=== PATIENT | male | born 1955 | race Caucasian/White ===

== ENCOUNTER 2020-02-15 17:03 | Inpatient (IN) | payer BC ==
[~2020-02-15] VITALS: Ht 190.5 cm; Wt 91.5 kg
--- NOTE | 2020-02-15 18:06 | NUR ---
PT STATES LOW BACK SURGERY X1 WEEK AGO. PT STATES RLE PAIN AND WEAKNESS STARTING THIS AM, PT STATES DIFFICULTY WALKING WELL. ERMD AT BEDSIDE FOR ASSESSMENT. PT PLACED ON MONITORS, VSS. WILL FOLLOW ORDERS.
[2020-02-15] MEDS ORDERED: ONDANSETRON 2MG/ML, 2ML ONE (18:27)
[2020-02-15] MEDS ORDERED: HYDROmorphone 1 MG/ML, 1ML INJ ONE ×2 (18:27→20:48)
[2020-02-15] MEDS ORDERED: SODIUM CHLORIDE FLUSH 10ML SYR IVF PRN (18:30)
[2020-02-15] MEDS ORDERED: ONDANSETRON 2MG/ML, 2ML IVPush ONE (18:30)
[2020-02-15] MEDS: HYDROmorphone 1 MG/ML, 1ML INJ IVPush PRN ×2 (18:31→20:48)
--- NOTE | 2020-02-15 18:34 | NUR ---
PT MEDICATED FOR PAIN PER ORDERS. WILL REASSESS.
--- NOTE | 2020-02-15 18:56 | NUR ---
MRI FORM COLPLETED, FAXED TO MRI. PT STATES PAIN SLIGHTLY DECREASED, PAIN MEDICATIONS EFFECTIVE.
[2020-02-15] MEDS ORDERED: SODIUM CHLORIDE FLUSH 10ML SYR IVF ONE (19:00)
--- NOTE | 2020-02-15 19:22 | NUR ---
REPORT GIVEN TO RAUL STEINER. PT TO MRI, OK TO TRANSFER TO FLOOR WHEN MRI COMPLETE.
--- NOTE | 2020-02-15 20:18 | NUR ---
PT BACK FROM MRI. ADMTTING AT BEDSIDE. THEN PT OK TO TRANSFER TO FLOOR.
--- NOTE | 2020-02-15 20:53 | NUR ---
PT MEDICATED FOR PAIN PER ORDERS. PT TRANSFERED TO FLOOR. PT HAS ALL OWN BELONGINGS UPON TRANSFER.
[2020-02-15] MEDS ORDERED: ONDANSETRON 2MG/ML, 2ML IVPush PRN (21:00)
[2020-02-15] MEDS ORDERED: ACETAMINOPHEN 325 MG TABLET PO PRN (21:00)
[2020-02-15] MEDS ORDERED: hydrALAzine 20 MG/ML, 1ML IVPush PRN (21:00)
[2020-02-15] MEDS ORDERED: TRAZODONE 50MG TABLET PO PRN (21:00)
[2020-02-15 21:13] VITALS: BP 143/91
[2020-02-15] MEDS: LACTATED RINGERS 1,000 ML IV SCH (21:20)
[2020-02-15] MEDS: KETOROLAC 30 MG/1 ML IV PRN (21:32)
[2020-02-16] MEDS: HYDROmorphone 2 MG/ML, 1ML IVPush PRN ×4 (00:08→14:53)
[2020-02-16 01:41] VITALS: BP 134/81
[2020-02-16] MEDS: KETOROLAC 30 MG/1 ML IV PRN ×2 (04:41→10:54)
[2020-02-16] MEDS: LACTATED RINGERS 1,000 ML IV SCH ×2 (04:50→13:45)
[2020-02-16 06:00] LABS: BASOPHILS # (AUTO) 0.03 x10^3/uL (0-0.1); BASOPHILS % (AUTO) 1 % (0-1); EOSINOPHILS # (AUTO) 0.12 x10^3/uL (0-0.4); EOSINOPHILS % (AUTO) 2 % (1-7); LYMPHOCYTES # (AUTO) 1.68 x10^3/uL (1-3.4); LYMPHOCYTES % (AUTO) 27 % (22-44); MD NO; MEAN CORPUSCULAR HEMOGLOBIN 30.4 pg (27.5-34.5); MEAN CORPUSCULAR HGB CONC 33.3 g/dL (33.2-36.2); MEAN CORPUSCULAR VOLUME 91.1 fL (81-97); MEAN PLATELET VOLUME 8.7 fL (7.4-10.4); MONOCYTES % (AUTO) 10 % (2-9); NEUTROPHILS # (AUTO) 3.79 x10^3/uL (1.8-6.8); NEUTROPHILS % (AUTO) 61 % (42-75); PLATELET COUNT 198 x10^3/uL (130-400); RED BLOOD COUNT 5.22 x10^6/uL (4.38-5.82); RED CELL DISTRIBUTION WIDTH 13.6 % (9.4-14.8)
[2020-02-16 06:05] LABS: ANION GAP 6 mmol/L (5-15); CHLORIDE 109 mmol/L (98-107); CREATININE 0.85 mg/dL (0.7-1.3)
[2020-02-16 07:55] VITALS: BP 142/83
[2020-02-16 09:19] LABS: HCT (SEDRATE) 47.5 % (39.2-51.8)
[2020-02-16] MEDS ORDERED: OXYcodone IR 5MG TABLET PO PRN (10:00)
[2020-02-16] MEDS: SENNA/DOCUSATE TABLET PO SCH (10:17)
[2020-02-16] MEDS: DEXAMETHASONE 4 MG/ML, 1ML IV SCH ×3 (10:17→22:21)
[2020-02-16] MEDS: CYCLOBENZAPRINE 10 MG TABLET PO PRN (10:18)
[2020-02-16] MEDS: OXYcodone IR 5MG TABLET PO PRN ×2 (10:54→16:20)
[2020-02-16 10:57] VITALS: BP 135/84
[2020-02-16 13:41] VITALS: BP 148/91
[2020-02-16] MEDS: GABAPENTIN 300 MG CAPSULE PO SCH ×2 (16:19→22:21)
[2020-02-16 18:48] VITALS: BP 146/79
[2020-02-17 01:41] VITALS: BP 118/73
[2020-02-17 06:56] LABS: BASOPHILS # (AUTO) 0.04 x10^3/uL (0-0.1); BASOPHILS % (AUTO) 0 % (0-1); EOSINOPHILS % (AUTO) 0 % (1-7); LYMPHOCYTES # (AUTO) 0.65 x10^3/uL (1-3.4); LYMPHOCYTES % (AUTO) 7 % (22-44); MD NO; MEAN CORPUSCULAR HEMOGLOBIN 30.2 pg (27.5-34.5); MEAN CORPUSCULAR HGB CONC 33.6 g/dL (33.2-36.2); MEAN CORPUSCULAR VOLUME 89.8 fL (81-97); MEAN PLATELET VOLUME 8.7 fL (7.4-10.4); MONOCYTES # (AUTO) 0.55 x10^3/uL (0.2-0.8); MONOCYTES % (AUTO) 6 % (2-9); NEUTROPHILS # (AUTO) 7.82 x10^3/uL (1.8-6.8); NEUTROPHILS % (AUTO) 86 % (42-75); PLATELET COUNT 227 x10^3/uL (130-400); RED BLOOD COUNT 5.12 x10^6/uL (4.38-5.82); RED CELL DISTRIBUTION WIDTH 13.7 % (9.4-14.8)
[2020-02-17 06:57] LABS: ANION GAP 5 mmol/L (5-15); CALCIUM 8.9 mg/dL (8.5-10.1); CHLORIDE 111 mmol/L (98-107); CREATININE 0.83 mg/dL (0.7-1.3)
[2020-02-17] MEDS: SENNA/DOCUSATE TABLET PO SCH (08:20)
[2020-02-17] MEDS: GABAPENTIN 300 MG CAPSULE PO SCH ×3 (08:20→21:21)
[2020-02-17] MEDS: OXYcodone IR 5MG TABLET PO PRN ×4 (08:31→22:39)
[2020-02-17 08:37] VITALS: BP 125/73
[2020-02-17 15:59] VITALS: BP 126/78
[2020-02-17 21:05] VITALS: BP 139/84
[2020-02-17] MEDS ORDERED: DIPHENHYDRAMINE 25 MG CAPSULE PO PRN (23:00)
[2020-02-18] MEDS: KETOROLAC 30 MG/1 ML IV PRN ×4 (01:10→22:18)
[2020-02-18 06:11] LABS: CHLORIDE 111 mmol/L (98-107)
[2020-02-18 06:20] LABS: BASOPHILS # (AUTO) 0.06 x10^3/uL (0-0.1); BASOPHILS % (AUTO) 1 % (0-1); EOSINOPHILS # (AUTO) 0.13 x10^3/uL (0-0.4); EOSINOPHILS % (AUTO) 2 % (1-7); LYMPHOCYTES # (AUTO) 2.16 x10^3/uL (1-3.4); LYMPHOCYTES % (AUTO) 30 % (22-44); MD NO; MEAN CORPUSCULAR VOLUME 90.8 fL (81-97); MEAN PLATELET VOLUME 8.6 fL (7.4-10.4); MONOCYTES # (AUTO) 0.52 x10^3/uL (0.2-0.8); MONOCYTES % (AUTO) 7 % (2-9); NEUTROPHILS # (AUTO) 4.26 x10^3/uL (1.8-6.8); NEUTROPHILS % (AUTO) 60 % (42-75); PLATELET COUNT 211 x10^3/uL (130-400); RED BLOOD COUNT 4.85 x10^6/uL (4.38-5.82); RED CELL DISTRIBUTION WIDTH 13.5 % (9.4-14.8)
[2020-02-18 06:21] LABS: ALANINE AMINOTRANSFERASE 36 U/L (12-78); ALKALINE PHOSPHATASE 57 U/L (45-117); ANION GAP 5 mmol/L (5-15); BILIRUBIN,TOTAL 0.9 mg/dL (0.2-1.0); CALCIUM 8.4 mg/dL (8.5-10.1); TOTAL PROTEIN 5.6 g/dL (6.4-8.2)
[2020-02-18 07:02] VITALS: BP 131/83
[2020-02-18] MEDS: OXYcodone IR 5MG TABLET PO PRN ×2 (08:25→13:14)
[2020-02-18] MEDS: SENNA/DOCUSATE TABLET PO SCH (08:25)
[2020-02-18] MEDS: GABAPENTIN 300 MG CAPSULE PO SCH ×3 (08:26→21:02)
[2020-02-18] MEDS: CYCLOBENZAPRINE 10 MG TABLET PO PRN ×2 (10:12→21:02)
[2020-02-18 14:50] VITALS: BP 143/83
[2020-02-18] MEDS ORDERED: DEXAMETHASONE 4 MG/ML, 1ML IVPush SCH (15:30)
[2020-02-18] MEDS: DEXAMETHASONE 10 MG in SODIUM CHLORIDE 0.9% 50 ML IV SCH ×2 (17:22→23:27)
[2020-02-18] MEDS ORDERED: POLYETHYLENE GLYCOL 17 GM PACKET PO PRN (17:30)
[2020-02-18] MEDS: HYDROmorphone 2 MG/ML, 1ML IVPush PRN (17:32)
[2020-02-18 19:56] VITALS: BP 132/81
[2020-02-19 00:14] VITALS: BP 114/70
[2020-02-19] MEDS: KETOROLAC 30 MG/1 ML IV PRN (04:48)
[2020-02-19] MEDS: DEXAMETHASONE 10 MG in SODIUM CHLORIDE 0.9% 50 ML IV SCH ×2 (05:13→21:55)
[2020-02-19 05:39] LABS: BASOPHILS % (AUTO) 0 % (0-1); EOSINOPHILS # (AUTO) 0.01 x10^3/uL (0-0.4); EOSINOPHILS % (AUTO) 0 % (1-7); LYMPHOCYTES # (AUTO) 0.48 x10^3/uL (1-3.4); LYMPHOCYTES % (AUTO) 8 % (22-44); MD NO; MEAN CORPUSCULAR HEMOGLOBIN 30.2 pg (27.5-34.5); MEAN CORPUSCULAR HGB CONC 33.5 g/dL (33.2-36.2); MEAN CORPUSCULAR VOLUME 90.2 fL (81-97); MEAN PLATELET VOLUME 8.9 fL (7.4-10.4); MONOCYTES # (AUTO) 0.06 x10^3/uL (0.2-0.8); MONOCYTES % (AUTO) 1 % (2-9); NEUTROPHILS % (AUTO) 91 % (42-75); PLATELET COUNT 245 x10^3/uL (130-400); RED BLOOD COUNT 5.16 x10^6/uL (4.38-5.82); RED CELL DISTRIBUTION WIDTH 13.8 % (9.4-14.8)
[2020-02-19 05:55] LABS: CHLORIDE 108 mmol/L (98-107)
[2020-02-19 06:05] LABS: ANION GAP 9 mmol/L (5-15); CALCIUM 8.8 mg/dL (8.5-10.1)
[2020-02-19 07:09] VITALS: BP 133/84
[2020-02-19] MEDS: SENNA/DOCUSATE TABLET PO SCH (09:11)
[2020-02-19] MEDS: GABAPENTIN 300 MG CAPSULE PO SCH ×3 (09:11→21:54)
[2020-02-19] MEDS: FAMOTIDINE 20 MG TABLET PO SCH ×2 (09:11→21:53)
[2020-02-19] MEDS: DEXAMETHASONE 4 MG/ML, 1ML IVPush SCH ×2 (11:23→16:30)
[2020-02-19] MEDS: HYDROmorphone 2 MG/ML, 1ML IVPush PRN ×2 (12:15→18:31)
[2020-02-19 13:21] VITALS: BP 120/78
[2020-02-19] MEDS ORDERED: DEXAMETHASONE 4 MG/ML, 1ML IV SCH (18:00)
[2020-02-19 18:26] VITALS: BP 137/75
[2020-02-19] MEDS: AMITRIPTYLINE 25 MG TABLET PO SCH (21:54)
[2020-02-20 01:23] VITALS: BP 135/81
[2020-02-20] MEDS: HYDROmorphone 2 MG/ML, 1ML IVPush PRN ×2 (02:06→10:29)
[2020-02-20] MEDS: DEXAMETHASONE 10 MG in SODIUM CHLORIDE 0.9% 50 ML IV SCH ×2 (03:09→08:40)
[2020-02-20] MEDS: OXYcodone IR 5MG TABLET PO PRN (05:23)
[2020-02-20] MEDS: GABAPENTIN 300 MG CAPSULE PO SCH ×3 (07:11→20:50)
[2020-02-20] MEDS: SENNA/DOCUSATE TABLET PO SCH (07:11)
[2020-02-20] MEDS: FAMOTIDINE 20 MG TABLET PO SCH ×2 (07:11→20:50)
[2020-02-20 07:35] VITALS: BP 134/82
[2020-02-20 08:46] LABS: INTERNATIONAL NORMALIZED RATIO 0.95 (0.93-1.1); PROTHROMBIN TIME 9.8 Seconds (9.6-11.5)
[2020-02-20] MEDS ORDERED: CHLORHEXIDINE 15 ML UDC ONE (10:54)
[2020-02-20] MEDS ORDERED: BUPIVACAINE/EPI 0.5% 1:200K ONE (10:56)
[2020-02-20] MEDS ORDERED: BACITRACIN OINT 500U/GM, 15 GM ONE (10:56)
[2020-02-20] MEDS ORDERED: BACITRACIN 50,000 UNIT ONE (10:56)
[2020-02-20] MEDS ORDERED: CHLORHEXIDINE 15 ML UDC MM ONE (11:00)
[2020-02-20] MEDS ORDERED: MIDAZOLAM 1 MG/ML, 2ML ONE (11:22)
[2020-02-20] MEDS ORDERED: FENTANYL PF 250 MCG/5ML ONE (11:22)
[2020-02-20] MEDS ORDERED: ACETAMINOPHEN 325 MG TABLET PO PRN ×2 (11:30→13:00)
[2020-02-20] MEDS ORDERED: OXYcodone 5 MG/5 ML ORAL.SOL UDC PO PRN (11:30)
[2020-02-20] MEDS ORDERED: MEPERIDINE/PF 25MG/0.5ML IVPush PRN (11:30)
[2020-02-20] MEDS ORDERED: ONDANSETRON 2MG/ML, 2ML IVPush PRN ×2 (11:30→13:00)
[2020-02-20] MEDS ORDERED: VANCOMYCIN 500 MG ONE (12:05)
[2020-02-20] MEDS: FENTANYL PF 100 MCG/2ML IV PRN ×3 (12:46→13:20)
[2020-02-20] MEDS ORDERED: KETOROLAC 30 MG/1 ML ONE (12:53)
[2020-02-20] MEDS ORDERED: FENTANYL PF 100 MCG/2ML ONE (12:53)
[2020-02-20] MEDS ORDERED: OXYcodone 5 MG/5 ML ORAL.SOL UDC ONE (12:54)
[2020-02-20] MEDS ORDERED: NS + 20MEQ KCL 1,000 ML IV SCH (13:00)
[2020-02-20] MEDS ORDERED: SENNA/DOCUSATE TABLET PO PRN (13:00)
[2020-02-20] MEDS ORDERED: METHOCARBAMOL 1,000 MG in DEXTROSE 5% 100 ML IV ONE (13:00)
[2020-02-20] MEDS ORDERED: HYDROmorphone 1 MG/ML, 1ML INJ IVPush PRN (13:00)
[2020-02-20] MEDS ORDERED: PROMETHAZINE 25 MG/ML, 1ML IM PRN (13:00)
[2020-02-20] MEDS ORDERED: BISACODYL 10 MG SUPP PR PRN (13:00)
[2020-02-20] MEDS ORDERED: DIPHENHYDRAMINE 50 MG/ML, 1ML IVPush PRN (13:00)
[2020-02-20] MEDS ORDERED: MAGNESIUM HYDROXIDE 8%, 30ML UDC PO PRN (13:00)
[2020-02-20] MEDS ORDERED: HYDROcodone/APAP 10/325 MG TABLET PO PRN (13:00)
[2020-02-20] MEDS: KETOROLAC 30 MG/1 ML IV PRN ×2 (13:00→20:51)
[2020-02-20] MEDS ORDERED: PHARMACY MAY ADJ FOR RENAL FX MC PRN (13:00)
[2020-02-20 14:06] VITALS: BP 149/79
[2020-02-20 15:34] VITALS: BP 129/78
[2020-02-20] MEDS: CEFAZOLIN PMX 1GM/50ML 50 ML IVPB SCH ×2 (16:23→23:56)
[2020-02-20] MEDS: HYDROcodone/APAP 5/325 TABLET PO PRN ×2 (16:55→20:50)
[2020-02-20 20:06] VITALS: BP 140/85
[2020-02-20] MEDS: AMITRIPTYLINE 25 MG TABLET PO SCH (20:50)
[2020-02-20] MEDS ORDERED: METHOCARBAMOL 750 MG TABLET PO PRN (21:00)
[2020-02-20] MEDS ORDERED: SODIUM CHLORIDE FLUSH 10ML SYR IVF SCH (21:00)
[2020-02-21 02:54] VITALS: BP 124/70
[2020-02-21] MEDS: HYDROcodone/APAP 5/325 TABLET PO PRN ×2 (05:00→16:54)
[2020-02-21 07:09] VITALS: BP 138/79
[2020-02-21] MEDS: SENNA/DOCUSATE TABLET PO SCH (08:32)
[2020-02-21] MEDS: FAMOTIDINE 20 MG TABLET PO SCH (08:32)
[2020-02-21] MEDS: GABAPENTIN 300 MG CAPSULE PO SCH ×2 (08:32→16:54)
[2020-02-21] MEDS: OXYcodone IR 5MG TABLET PO PRN (10:16)
[2020-02-21] MEDS: CYCLOBENZAPRINE 10 MG TABLET PO PRN (12:52)
[2020-02-21 13:12] VITALS: BP 142/86
[2020-02-21] MEDS ORDERED: GABA300C PO (16:10)
[2020-02-21] MEDS ORDERED: CYCL-259 PO (16:10)
[2020-02-21] MEDS ORDERED: AMIT25TA PO (16:10)
== END 2020-02-21 17:34 | disposition home or self-care (01) | DRG 520 ==
LOC: ED 18:13 → EDIP 18:54 → 3N 20:59
PROVIDERS: ADMIT Family Medicine; ATTEND Hospitalist
PROC: 01NB0ZZ Release Lumbar Nerve, Open Approach (ICD-10-PCS; 2020-02-20)
PROC: 0SB40ZZ Excision of Lumbosacral Disc, Open Approach (ICD-10-PCS; principal; 2020-02-20 12:00)
DX: M51.17 Intervertebral disc disorders with radiculopathy, lumbosacral region (principal); K59.03 Drug induced constipation; T40.605A Adverse effect of unspecified narcotics, initial encounter; G89.29 Other chronic pain; Z20.828 Contact with and (suspected) exposure to other viral communicable diseases; Y92.89 Other specified places as the place of occurrence of the external cause; Z80.42 Family history of malignant neoplasm of prostate; Z85.51 Personal history of malignant neoplasm of bladder; Z87.891 Personal history of nicotine dependence; Z79.899 Other long term (current) drug therapy
CPT/HCPCS: 36415; 72148; 80048; 80053; 85025; 85610; 85651; 86140; 87635; 93005; 96374; 96375; 96376; G0378; J0690; J1100; J1170; J1885; J2250; J2405; J3010; J3370; J3480; J2800; J7120; Q0163

== ENCOUNTER 2021-03-14 07:27 | Day surgery (SDC) | payer BC ==
[~2021-03-14] VITALS: Ht 190.5 cm; Wt 87.6 kg
[2021-03-14 07:56] VITALS: BP 126/79
== END 2021-03-14 13:35 | disposition home or self-care (01) ==
LOC: OR 07:27
PROVIDERS: ATTEND Urology
DX: D49.4 Neoplasm of unspecified behavior of bladder (principal); C67.5 Malignant neoplasm of bladder neck; N40.0 Benign prostatic hyperplasia without lower urinary tract symptoms; N32.81 Overactive bladder; K21.9 Gastro-esophageal reflux disease without esophagitis; Z79.899 Other long term (current) drug therapy; Z87.891 Personal history of nicotine dependence
CPT/HCPCS: 51720; 52234; 88305; J2060; J2250; J3010; J7120